=== PATIENT | male | born 2000 | race Caucasian/White ===

== ENCOUNTER 2021-07-05 19:58 | Emergency (ER) | payer OTHER ==
[~2021-07-05] VITALS: Ht 180.3 cm; Wt 67.0 kg
[2021-07-05] MEDS ORDERED: IBUPROFEN 600 MG TABLET ONE (20:35)
[2021-07-05] MEDS ORDERED: IBUPROFEN 600 MG TABLET PO ONE (21:00)
[2021-07-05] MEDS ORDERED: COVID-19 VACC,MRNA(MODERNA)/PF 100 MCG/0.5ML IM-VACC ONE (21:00)
[2021-07-05] MEDS ORDERED: HYDROcodone/APAP 5/325 TABLET ONE (21:27)
[2021-07-05] MEDS ORDERED: HYDROcodone/APAP 5/325 TABLET PO ONE (21:30)
[2021-07-05 22:17] VITALS: BP 119/68
--- NOTE | 2021-07-06 01:45 | NUR ---
Pt left department prior to COVID vaccine admin, vaccine returned to pharmacy
== END 2021-07-05 23:07 | disposition home or self-care (01) ==
LOC: ED 20:00
DX: S02.85XA Fracture of orbit, unspecified, initial encounter for closed fracture (principal); S02.40DA Maxillary fracture, left side, initial encounter for closed fracture; J45.909 Unspecified asthma, uncomplicated; F17.200 Nicotine dependence, unspecified, uncomplicated; Y04.8XXA Assault by other bodily force, initial encounter; Y93.89 Activity, other specified; Y92.410 Unspecified street and highway as the place of occurrence of the external cause; Y99.8 Other external cause status
CPT/HCPCS: 70486; 91301; 99284